=== PATIENT | male | born 1985 | race Two or more races ===

== ENCOUNTER 2017-07-18 22:46 | Emergency (ER) | payer SELFPAY ==
--- NOTE | 2017-07-18 22:49 | EDPHY ---
H & P Source: Patient, Police, EMS Exam Limitations: No limitations - Medical/Surgical History Hx Asthma: No Hx Chronic Respiratory Disease: No Hx Diabetes: No Hx Cardiac Disease: No Hx Renal Disease: No Hx Cirrhosis: No Hx Alcoholism: No Hx HIV/AIDS: No Hx Splenectomy or Spleen Trauma: No Other PMH: denies - Social History Smoking Status: Current every day smoker Time Seen by Provider: 07/18/17 22:48 HPI/ROS: HPI: This is a 32-year-old male who presents with Chief Complaint: M1 hold, suicidal ideation Location: Right side of chest Quality: Discomfort Duration: Several hours Signs and Symptoms: + auditory hallucinations, no visual hallucinations, no suicidal ideation with a plan, no homicidal ideation, no paranoia, + aggression Timing: Gradual onset Severity: [id number] Context: Patient reports that he inhaled methamphetamine for the 1st time this morning and it"made me crazy." Patient remembers going to his house and becoming aggressive. He says that he was hearing voices in his head and believes that his was cheating on him. His called the police who came to the domestic home and found him crying and being remorseful. Patient has no history of psychiatric illness or previous suicide attempts or homicidal ideation. Patient reports that he normally smokes marijuana. He tried methamphetamine for the 1st time today"because I never tried it before." Patient currently reports that he does not hear voices in his head. He denies being paranoid. He does complain of some right anterior chest discomfort and thinks that something may be wrong with his chest since he inhaled methamphetamine. No history of lung disease. Denies shortness of breath/ wheezing/palpitation/fever/cough. Modifying Factors: None Comment: ROS: see HPI Constitutional: No fever, no chills, no weight loss Eyes: No blurred vision Respiratory: No shortness of breath, no cough Cardiovascular: + chest pain Gastrointestinal: No nausea, no vomiting, no diarrhea Genitourinary: No dysuria Extremities: No myalgias Neurologic: No weakness, no numbness Skin: No rashes Hematologic: No bruising, no bleeding MEDICAL/SURGICAL/SOCIAL HISTORY: Medical history: Generally healthy. Does not take any regular medications. Surgical history: Denies Social history: Tobacco user. Employed. Family history noncontributory. CONSTITUTIONAL: Well-developed, well-nourished male, awake and alert, no obvious distress HEENT: Atraumatic and normocephalic, PERRL, EOMI. Nares patent; no rhinorrhea; no nasal mucosal edema. Tympanic membranes clear. Oropharynx clear, no exudate and moist pink mucosa. Airway patent. No lymphadenopathy. No meningismus. Cardiovascular: Normal S1/S2, tachycardia, regular rhythm, without murmur rub or gallop. PULMONARY/CHEST: Symmetrical and nontender. Clear to auscultation bilaterally. Good air movement. No accessory muscle usage. ABDOMEN: Soft, nondistended, nontender, no rebound, no guarding, no peritoneal signs, no masses or organomegaly. No CVAT. EXTREMITIES: 2/2 pulses, strength 5/5, no deformities, no clubbing, no cyanosis or edema. NEUROLOGICAL: no focal neuro deficits. GCS 15. SKIN: Warm and dry, no erythema. no rash. Good capillary refill. PSYCH: Good eye contact, no flight of ideas, organized thought process, fair insight and judgment, + auditory and visual command hallucinations, no suicidal ideation with a plan, no homicidal ideation, no paranoia (Sky,Terra) Constitutional: Initial Vital Signs Temperature (C) 36.5 C 07/18/17 22:54 Heart Rate 120 H 07/18/17 22:54 Respiratory Rate 18 07/18/17 22:54 Blood Pressure 144/110 H 07/18/17 22:54 O2 Sat (%) 95 07/18/17 22:54 O2 Delivery Mode Room Air Allergies/Adverse Reactions: No Known Allergies Allergy (Unverified 07/18/17 22:55) Home Medications: Medication Instructions Recorded NK [No Known Home Meds] 07/18/17 Medical Decision Making - Diagnostics Imaging Results: Imaging Impressions Chest X-Ray 07/18/17 23:13 Impression: Mild hypoventilatory features with mild perihilar bronchitis, but no focal infiltrate. ED Course/Re-evaluation: Vital signs reviewed upon arrival and stable. No signs of hypoxia/tachycardia/ fever. Lung sounds are clear. Chest x-ray ordered and shows no effusion, no opacity, no pneumothorax, no widened mediastinum. Patient does not meet M1 hold or Detainer criteria. No prior psychiatric history. Hallucinations and aggressive behavior are related to methamphetamine use and patient is medically clear to be discharged to retirement. This patient was seen under the supervision of my secondary supervising physician. I evaluated care for this patient independently. Discussed this patient with Dr. Abraham who did not see the patient. (Kathia Swanson) PHYSICIAN DOCUMENTATION: The patient was evaluated and managed by the Physician Barrel Charrer. My co- signature indicates that I have reviewed this chart and I agree with the findings and plan of care as documented. I am the secondary supervising physician. (Danica Abraham) Differential Diagnosis: Differential diagnosis includes but is not limited to intoxicants, schizoaffective disorder, bipolar disorder, megan, psychosis. (Kathia Swanson) Departure - Departure Disposition: Law Enforcement/Court/[facility] Clinical Impression: Methamphetamine use, Aggressive behavior Condition: Good Instructions: Methamphetamine Abuse (ED) Additional Instructions: Please refrain from using methamphetamine. Patient is Medically Cleared to be discharged to retirement. See [facility] for follow-up instructions and prescriptions. Referrals: [facility],. [Clinic] - Follow Up Only If Needed
[2017-07-19] VITALS: BP 144/113
== END 2017-07-19 ==
LOC: EDUNIT# → EEVIPCON 22:46
DX: F91.8 Other conduct disorders (principal); F15.90 Other stimulant use, unspecified, uncomplicated; F17.200 Nicotine dependence, unspecified, uncomplicated